=== PATIENT | male | born 1975 | race Caucasian/White ===

== ENCOUNTER 2019-05-21 08:03 | Observation (INO) ==
[2019-05-21] MEDS ORDERED: 0.9 % Sodium Chloride 1,000 ML IVC ONE (08:22)
[2019-05-21] MEDS ORDERED: *HR* FentaNYL (PF) 100 MCG/2 ML VIAL IVP ONE (08:23)
[2019-05-21] MEDS ORDERED: Ondansetron 4 MG/2 ML VIAL IVP STA (08:23)
--- NOTE | 2019-05-21 08:24 | Emergency Department Note ---
Disposition Clinical Impression: Ureteral stone with hydronephrosis Disposition: Admitted As Inpatient Time of Disposition: 16:44 Abdominal Pain HPI - General Chief Complaint: ED Abdominal Pain Stated Complaint: abd pain Time Seen by Provider: 05/21/19 08:10 Source: patient, family Mode of arrival: ambulatory Limitations: no limitations Nursing Notes Reviewed: Yes Vital Signs Reviewed: Yes - History of Present Illness HPI Narrative: 44-year-old male past medical history of renal lithiasis approximately 20 years ago woke up this morning at 6:30 with sharp stabbing 10 out of 10 pain in his right lower quadrant radiating into his right flank. Patient states this is identical pain to his prior kidney stone. Patient is unable to find a comfortable position is diaphoretic in the room. Patient states that he is felt very hot but denies any overt fevers or chills he is not a chest pain or shortness of breath, he is admitting to urinary frequency but denies dysuria or abnormal bleeding. Patient with no other concerns or complaints at this time. Given the patient's significant pain level we will begin IV fentanyl and Zofran for the management of his pain and nausea along with IV fluids. CT scan of the abdomen with abdominal labs to follow. Pt Subjective Complaint: abdominal pain, flank pain Onset (ago): hour(s) Consistency: constant Location: RLQ, R flank Pain Severity: severe Pain Scale: 9 Quality: stabbing, sharp Radiation: none Migration to: no migration Improves with: nothing Worsens with: nothing Associated symptoms: Reports: nausea, vomiting Treatments prior to arrival: none - Related Data Home Medications Medication Instructions Recorded Confirmed No Known Home Drugs 05/21/19 05/21/19 Allergies Allergy/AdvReac Type Severity Reaction Status Date / Time No Known Allergies Allergy Verified 09/04/15 11:22 Review of Systems: *See History of Present Illness for more detail Constitutional: Admits to feeling very hot and sweaty Denies: fever, chills Cardiovascular: Denies: chest pain Respiratory: Denies: dyspnea, cough, hemoptysis Gastrointestinal: Admits to abdominal pain nausea and vomiting. Denies: diarrhea, constipation, hematemesis, melena, hematochezia Genitourinary: Urinary frequency Denies: hematuria Musculoskeletal: Denies: back pain, neck pain Neurological: Denies: headache, weakness, lightheadedness/dizziness, numbness, paresthesias, difficulty with ambulation. Endocrine: Denies: fatigue All systems ED: reviewed and negative except as stated. Review of Systems: As Per HPI Abdominal Pain PMH - Past Medical History Medical history: Reports: no medical history Male Surgical History: Reports: orthopedic, other Psychiatric history: Reports: no psych history - Social History Smoking status: Never smoker Alcohol use: Reports: none Drug use: Reports: none Physical Exam Constitutional: No acute distress, [id number], engaged to conversation, speech is fluid, answers questions appropriately Neuro: GCS 15, no overt focal neurological deficits Head: Atraumatic, normocephalic Eyes: Pupils equal, round and reactive to light, no scleral icterus, no conjunctival injection Neck: Trachea midline without deviation. Anterior neck is supple without swelling. *Chest: Symmetric chest wall rise *Heart: Cardiac rhythm and rate are regular with S1 and S2 , no S3 or S4 appreciated, no murmurs, gallops, rubs, or clicks. *Lungs: Lungs are clear to auscultation bilaterally, without accessory muscle use or prolonged expiratory phase. No wheezes, rhonchi or stridor appreciated. Abdomen: Abdomen is flat, soft to palpation, normal bowel sounds. No abdominal bruit auscultated. Non-distended, non-rigid, no organomegaly, no ascites appreciated. No pulsatile mass, no tenderness or guarding to palpation in all four quadrants, no rebound Extremities: Normal capillary refill without evidence of pedal edema, joint swelling or erythema. Pulses/motor/sensory intact in all 4 extremities. Psychiatric exam: Patient displays a normal affect and mood for the environment. No overt signs of hallucination. Integumentary: warm, dry, intact, normal color. No rash, cyanosis, diaphoresis, erythema, or pallor - General Limitations: no limitations General appearance: alert, in no apparent distress Course - Reevaluation(s) Reevaluation #1: Spoke with physician patient assistant for Dr. Emir webb regarding this patient's care. PETEY states that based on patient preference they may be managed outpatient or have admission to the hospital with urology follow-up either tonight tomorrow. The patient prefers admission at this time and this was communicated to the urology department. PETEY states that she will come and see the patient in the ED. Consult has been placed. Consultation is greatly appre ciated! Time: 10:17 Vital Signs Temperature 98.2 F 05/21/19 08:09 Pulse Rate 62 05/21/19 08:09 Respiratory Rate 18 05/21/19 08:09 Blood Pressure 132/80 05/21/19 08:09 O2 Sat by Pulse Oximetry 99 05/21/19 08:09 Temperature 98.2 F 05/21/19 14:44 Pulse Rate 65 05/21/19 14:44 Respiratory Rate 16 05/21/19 14:44 Blood Pressure 116/66 05/21/19 14:44 O2 Sat by Pulse Oximetry 95 05/21/19 14:44 Oxygen Delivery Oxygen Delivery Room Air Abdominal Pain - MDM Narrative Medical decision making narrative: Patient noted to hospital medicine service with urology consult for management of renal lithiasis. Patient's pain is currently well-controlled and he is hemodynamically stable time of admission. - Lab Data Lab results reviewed: Yes I reviewed the patient's lab results. Result diagrams: 05/21/19 08:32 05/21/19 08:32 Lab Results 05/21/19 05/21/19 Range/Units 08:32 08:32 WBC 7.7 (4.3-11.1) K/mcL RBC 5.21 (4.19-5.50) M/mcL Hgb 15.1 (12.9-16.9) g/dL Hct 44.0 (37.5-50.1) % MCV 84.5 (83.0-100.0) fL MCH 29.0 (28.0-33.3) pg MCHC 34.3 (31.6-35.5) g/dL RDW 12.5 (11.5-14.5) % Plt Count 289 (140-400) K/mcL MPV 10.1 (9.4-12.4) fL Immature Gran % 0.7 (0-4) % Seg Neutrophils % 58.4 % Lymphocytes % 29.0 % Monocytes % 10.2 % Eosinophils % 1.2 % Basophils % 0.5 % Neutrophils # 4.5 (1.6-8.9) K/mcL Lymphocytes # 2.2 (0.6-4.6) K/mcL Monocytes # 0.8 (0.0-1.3) K/mcL Eosinophils # 0.1 (0.0-0.6) K/mcL Basophils # 0.0 (0.0-0.2) K/mcL Sodium 144 (136-145) mEq/L Potassium 3.6 (3.5-5.1) mEq/L Chloride 103 (98-107) mEq/L Carbon Dioxide 26 (23-29) mEq/L BUN 19 (6-20) mg/dL Creatinine 1.35 H (0.70-1.30) mg/dL Est GFR ( Amer) > 60 (> 60) Est GFR (Non-Af Amer) 58 L (> 60) BUN/Creatinine Ratio 14 (6-26) Glucose 131 H (70-105) mg/dL Calculated Osmolality 302 H (280-300) Calcium 9.7 (8.6-10.3) mg/dL Total Bilirubin 0.9 (0.3-1.0) mg/dL Direct Bilirubin 0.1 (0.0-0.2) mg/dL Indirect Bilirubin 0.8 (0.0-1.2) mg/dL AST 22 (13-39) Units/L ALT 24 (7-52) Units/L Alkaline Phosphatase 72 (34-104) Units/L Serum Total Protein 7.3 (6.4-8.9) g/dL Albumin 4.5 (3.5-5.7) g/dL Globulin 2.8 (2.4-3.5) g/dL Albumin/Globulin Ratio 1.6 (1.1-2.2) Lipase 14 (11-82) Units/L - Radiology Data Radiology results reviewed: Yes I reviewed the patient's radiology results. Abdomen/Pelvis CT 05/21/19 08:21 IMPRESSION: 1. Mildly obstructing 6 mm stone in the proximal right ureter with mild perinephric and periureteral stranding. 2. Bilateral punctate nephrolithiasis. 3. L5 pars defects with grade 1 anterolisthesis and associated moderately severe disc disease. 4. Findings suggestive of mild hepatic steatosis. D/ / Jan Fofana / Jan Fofana Interpreting Provider: Jan Fofana
[2019-05-21 08:49] LABS: White Blood Count 7.7 K/mcL (4.3-11.1)
[2019-05-21 08:50] LABS: Basophils % 0.5 %; Eosinophils # 0.1 K/mcL (0.0-0.6); Eosinophils % 1.2 %; Hemoglobin 15.1 g/dL (12.9-16.9); Immature Granulocytes % 0.7 % (0-4); Lymphocytes # 2.2 K/mcL (0.6-4.6); Mean Corpuscular HGB Conc 34.3 g/dL (31.6-35.5); Mean Corpuscular Volume 84.5 fL (83.0-100.0); Mean Platelet Volume 10.1 fL (9.4-12.4); Monocytes # 0.8 K/mcL (0.0-1.3); Monocytes % 10.2 %; Neutrophils # 4.5 K/mcL (1.6-8.9); Platelet Count 289 K/mcL (140-400); Red Blood Count 5.21 M/mcL (4.19-5.50); Red Cell Distribution Width 12.5 % (11.5-14.5); Segmented Neutrophils % 58.4 %
[2019-05-21 09:07] LABS: Alanine Aminotransferase 24 Units/L (7-52); Albumin 4.5 g/dL (3.5-5.7); Albumin/Globulin Ratio 1.6 (1.1-2.2); Alkaline Phosphatase 72 Units/L (34-104); Aspartate Amino Transferase 22 Units/L (13-39); BUN/Creatinine Ratio 14 (6-26); Bilirubin,Direct 0.1 mg/dL (0.0-0.2); Bilirubin,Indirect 0.8 mg/dL (0.0-1.2); Bilirubin,Total 0.9 mg/dL (0.3-1.0); Blood Urea Nitrogen 19 mg/dL (6-20); Calcium 9.7 mg/dL (8.6-10.3); Carbon Dioxide 26 mEq/L (23-29); Chloride 103 mEq/L (98-107); Globulin 2.8 g/dL (2.4-3.5); Glucose 131 mg/dL (70-105); Lipase 14 Units/L (11-82); Osmolality,Calculated 302 (280-300); Potassium 3.6 mEq/L (3.5-5.1); Sodium 144 mEq/L (136-145); Total Protein 7.3 g/dL (6.4-8.9); eGFR For African Americans > 60 (> 60); eGFR For Non-African Americans 58 (> 60)
--- NOTE | 2019-05-21 10:29 | Emergency Department Note ---
Disposition Clinical Impression: Ureteral stone with hydronephrosis Disposition: Still a Patient Referrals: Chas Ayala DO [Primary Care Provider] - Forms: ED Satisfaction Letter, Work/School Release Time of Disposition: 10:28 General Adult HPI - General Chief complaint: ED Abdominal Pain Stated complaint: abd pain Time Seen by Provider: 05/21/19 08:10 Source: patient, family Mode of arrival: ambulatory Limitations: no limitations Nursing Notes Reviewed: Yes Vital Signs Reviewed: Yes - History of Present Illness HPI Narrative: Attestation note: Patient was seen with the emergency medicine resident/nurse practitioner/ physician veterinary assistant/transitional resident/medical student: Dr. Ezequiel Velarde. This includes well any procedures performed for this significant portion thereof which are to include EKG and bedside ultrasound I have personally performed a face to face evaluation on this patient. I have reviewed and agree with history and physical examination patient management and disposition. Briefly the salient points of the case are as follows: 44-year-old male woke up with flank pain and urinary frequency but no hematuria prior history of stones pending of left flank pain mild to moderate distress. Analgesics and fluid given patient abdominal pelvic CT shows a 6 mm obstructing stone urology is been consult at. Patient getting a second dose pain medication. Disposition pending Pain Scale: 5 - Related Data Previous Rx's Medication Instructions Recorded Pantoprazole Sodium [Protonix] 40 mg PO DAILY #30 tablet. 09/04/15 Allergies Allergy/AdvReac Type Severity Reaction Status Date / Time No Known Allergies Allergy Verified 09/04/15 11:22 Past Medical History - Past Medical History Medical history: Reports: no medical history Surgical history: Reports: other Psychiatric history: Reports: no psych history - Social History Smoking Status: Never smoker Smokeless Tobacco Status: Yes Alcohol use: Reports: none Drug use: Reports: none Physical Exam - General Limitations: no limitations General appearance: alert, in no apparent distress Course Vital Signs Temperature 98.2 F 05/21/19 08:09 Pulse Rate 62 05/21/19 08:09 Respiratory Rate 18 05/21/19 08:09 Blood Pressure 132/80 05/21/19 08:09 O2 Sat by Pulse Oximetry 99 05/21/19 08:09 Temperature 98.2 F 05/21/19 08:09 Pulse Rate 71 05/21/19 10:26 Respiratory Rate 18 05/21/19 10:26 Blood Pressure 129/88 05/21/19 10:26 O2 Sat by Pulse Oximetry 95 05/21/19 10:26 Oxygen Delivery Oxygen Delivery Room Air Medical Decision Making - Lab Data Result diagrams: 05/21/19 08:32 05/21/19 08:32 Lab Results 05/21/19 05/21/19 Range/Units 08:32 08:32 WBC 7.7 (4.3-11.1) K/mcL RBC 5.21 (4.19-5.50) M/mcL Hgb 15.1 (12.9-16.9) g/dL Hct 44.0 (37.5-50.1) % MCV 84.5 (83.0-100.0) fL MCH 29.0 (28.0-33.3) pg MCHC 34.3 (31.6-35.5) g/dL RDW 12.5 (11.5-14.5) % Plt Count 289 (140-400) K/mcL MPV 10.1 (9.4-12.4) fL Immature Gran % 0.7 (0-4) % Seg Neutrophils % 58.4 % Lymphocytes % 29.0 % Monocytes % 10.2 % Eosinophils % 1.2 % Basophils % 0.5 % Neutrophils # 4.5 (1.6-8.9) K/mcL Lymphocytes # 2.2 (0.6-4.6) K/mcL Monocytes # 0.8 (0.0-1.3) K/mcL Eosinophils # 0.1 (0.0-0.6) K/mcL Basophils # 0.0 (0.0-0.2) K/mcL Sodium 144 (136-145) mEq/L Potassium 3.6 (3.5-5.1) mEq/L Chloride 103 (98-107) mEq/L Carbon Dioxide 26 (23-29) mEq/L BUN 19 (6-20) mg/dL Creatinine 1.35 H (0.70-1.30) mg/dL Est GFR ( Amer) > 60 (> 60) Est GFR (Non-Af Amer) 58 L (> 60) BUN/Creatinine Ratio 14 (6-26) Glucose 131 H (70-105) mg/dL Calculated Osmolality 302 H (280-300) Calcium 9.7 (8.6-10.3) mg/dL Total Bilirubin 0.9 (0.3-1.0) mg/dL Direct Bilirubin 0.1 (0.0-0.2) mg/dL Indirect Bilirubin 0.8 (0.0-1.2) mg/dL AST 22 (13-39) Units/L ALT 24 (7-52) Units/L Alkaline Phosphatase 72 (34-104) Units/L Serum Total Protein 7.3 (6.4-8.9) g/dL Albumin 4.5 (3.5-5.7) g/dL Globulin 2.8 (2.4-3.5) g/dL Albumin/Globulin Ratio 1.6 (1.1-2.2) Lipase 14 (11-82) Units/L
--- NOTE | 2019-05-21 11:00 | Urology - Consult Note ---
Date of Encounter: 05/21/19 Time of Encounter: 10:30 - Assessment and Plan (1) Ureteral stone with hydronephrosis Current Visit: Yes Status: Acute Assessment and plan: Patient is a 44-year-old male who presents with a 6 mm right proximal ureteral stone and hydronephrosis. Vital signs are stable and afebrile. White blood cell count is reassuring. Serum creatinine slightly elevated at 1.35. Patient is being admitted to the hospitalist service. We discussed surgical risks and benefits, and patient verbalized understanding. Patient signed consent, and he is prepared undergo a right ureteroscopic stone extraction with holmium laser lithotripsy, basket retrieval and right ureteral stent placement later this afternoon with Dr. Field. Patient will remain nothing by mouth. Urology CN:HPI Consult date: 05/21/19 Reason for consult Urology: Hydronephrosis (right ureteral stone) Requesting physician: Ezequiel Maria History of present illness: Patient is a 44-year-old male who presents with a 6 mm right proximal ureteral stone and hydronephrosis. Patient reports a one-week history of intermittent right flank pain, the patient states the pain acutely worsened overnight. Patient presented to the emergency department where he underwent a CT of the abdomen and pelvis revealing right nephrolithiasis and a right proximal ureteral stone measuring up to 6 mm with hydronephrosis. Patient admits to diaphoresis, nausea and vomiting, but he denies any fever, chills, gross hematuria or dysuria. Patient has a long-standing history of nephrolithiasis with his last stone occurring approximately 15 years ago. Patient has previously undergone ureteral stent placement and ESWL. Patient has a significant family history of renal stones through his father. Past Med Surg Social Fam HX - Past Medical History Medical history: no medical history Psychiatric history: no psych history - Past Surgical History Surgical History: other Additional surgical history: ankle, femur, hip - Social History Smoking Status: Never smoker Smokeless Tobacco Status: Yes Alcohol use: none Drug use: none - Family History Father Grandfather Hx Family Cardiac Disorders: Yes Medications and Allergies No Known Home Drugs 05/21/19 [History] Allergy/AdvReac Type Severity Reaction Status Date / Time No Known Allergies Allergy Verified 09/04/15 11:22 Review of Systems - Constitutional no chills, no fatigue, no fever(s) - EENT Nose, mouth and throat: no dizziness, no headache(s) - Cardiovascular no chest pain, no diaphoresis, no dyspnea - Respiratory no cough, no dyspnea - Gastrointestinal abdominal pain, nausea, vomiting - Genitourinary flank pain, no change in urinary stream, no difficulty urinating, no dysuria, no hematuria, no urinary frequency, no urinary hesitancy, no urinary incontinence, no urinary urgency - Musculoskeletal back pain, no muscle weakness - Integumentary no erythema - Neurological no confusion, no syncope - Psychiatric no anxiety, no confusion - Hematologic/Lymphatic no easy bleeding, no easy bruising - Allergic/Immunologic no throat swelling, no wheezing Exam Initial Vital Signs Temp Pulse Resp BP Pulse Ox 98.2 F 62 18 132/80 99 05/21/19 08:09 05/21/19 08:09 05/21/19 08:09 05/21/19 08:09 05/21/19 08:09 - General physical appearance Present: well developed, no distress, no pain - Eyes Present: PERRL, normal ocular movement - ENT Present: normal nares, no hearing loss, no congestion - Neck Present: no masses, trachea midline, no lymphadenopathy - Respiratory Present: normal respiratory effort - Cardiovascular Cardiovascular exam IM: RRR - Abdomen Abdomen: Present: soft, non tender. Absent: distended - Genitourinary other (Urine is transparent, clear yellow; no CVAT) - Integumentary Present: no rash, no abnormal pigmentation - Neurologic Present: normal coordination - Musculoskeletal Present: other (Normal posture) Urology Results - Labs 05/21/19 08:32 05/21/19 08:32 Abnormal lab results Creatinine 1.35 mg/dL (0.70-1.30) H 05/21/19 08:32 Est GFR (Non-Af Amer) 58 (> 60) L 05/21/19 08:32 Glucose 131 mg/dL (70-105) H 05/21/19 08:32 Calculated Osmolality 302 (280-300) H 05/21/19 08:32 Diabetes panel 05/21/19 Range/Units 08:32 Sodium 144 (136-145) mEq/L Potassium 3.6 (3.5-5.1) mEq/L Chloride 103 (98-107) mEq/L Carbon Dioxide 26 (23-29) mEq/L BUN 19 (6-20) mg/dL Creatinine 1.35 H (0.70-1.30) mg/dL Glucose 131 H (70-105) mg/dL Calcium 9.7 (8.6-10.3) mg/dL AST 22 (13-39) Units/L ALT 24 (7-52) Units/L Alkaline Phosphatase 72 (34-104) Units/L Albumin 4.5 (3.5-5.7) g/dL Calcium panel 05/21/19 Range/Units 08:32 Calcium 9.7 (8.6-10.3) mg/dL Albumin 4.5 (3.5-5.7) g/dL Pituitary panel 05/21/19 Range/Units 08:32 Sodium 144 (136-145) mEq/L Potassium 3.6 (3.5-5.1) mEq/L Chloride 103 (98-107) mEq/L Carbon Dioxide 26 (23-29) mEq/L BUN 19 (6-20) mg/dL Creatinine 1.35 H (0.70-1.30) mg/dL Glucose 131 H (70-105) mg/dL Calcium 9.7 (8.6-10.3) mg/dL Adrenal panel 05/21/19 Range/Units 08:32 Sodium 144 (136-145) mEq/L Potassium 3.6 (3.5-5.1) mEq/L Chloride 103 (98-107) mEq/L Carbon Dioxide 26 (23-29) mEq/L BUN 19 (6-20) mg/dL Creatinine 1.35 H (0.70-1.30) mg/dL Glucose 131 H (70-105) mg/dL Calcium 9.7 (8.6-10.3) mg/dL Total Bilirubin 0.9 (0.3-1.0) mg/dL AST 22 (13-39) Units/L ALT 24 (7-52) Units/L Alkaline Phosphatase 72 (34-104) Units/L Albumin 4.5 (3.5-5.7) g/dL All other labs normal. - Imaging CT scan - abdomen: report reviewed, image reviewed CT scan - pelvis: report reviewed, image reviewed Consult Discharge Plan - Plan Referrals: Chas Ayala DO [Primary Care Provider] -
[2019-05-21] MEDS ORDERED: Naloxone 0.4 MG/ML INJ IVP PRN ×3 (11:21→19:36)
--- NOTE | 2019-05-21 11:21 | Internal Med History&Physical ---
Date of Encounter: 05/21/19 Time of Encounter: 11:20 Internal Medicine - H&P: HPI History of present illness: Mr. Leblanc is a 44 year old male with history of nephrolithiasis with ureteral stents 15 years ago presented for a one week history of right flank pain that has gradually gotten worse. Patient went to ED and had CT of abdomen/pelvis showing right nephrolithiasis and UPJ stone obstruction with hydronephrosis. He was seen to have borderline elevated creatinine as well. He was treated with IV fluids and pain medications. Currently in no pain. Past Med Surg Social Fam HX - Past Medical History Medical history: no medical history Psychiatric history: no psych history - Past Surgical History Surgical History: other Additional surgical history: ankle, femur, hip - Social History Smoking Status: Never smoker Smokeless Tobacco Status: Yes Alcohol use: none Drug use: none - Family History Father Grandfather Hx Family Cardiac Disorders: Yes Internal Medicine - H&P: Meds No Known Home Drugs 05/21/19 [History] Allergy/AdvReac Type Severity Reaction Status Date / Time No Known Allergies Allergy Verified 09/04/15 11:22 All Systems PM: A 10-system review of systems was performed and is negative for pertinent findings except as documented above in the HPI. - Constitutional Vitals: Temp Pulse Resp BP Pulse Ox 98.2 F 71 18 129/88 95 05/21/19 08:09 05/21/19 10:26 05/21/19 10:26 05/21/19 10:26 05/21/19 10:26 General appearance: Present: A&O X 3 Exam: Pleasant - Head Head exam: Present: atraumatic, normocephalic - Eye Eye exam: Present: PERRL, conjuntiva pink, sclera anicteric Pupils: Present: PERRL - Neck Neck exam general surgery: Present: supple, trachea midline. Absent: lymphad enopathy - Respiratory Respiratory exam: Present: CTAB. Absent: accessory muscle use, rales, rhonchi, wheezes - Cardiovascular Cardiovascular exam: Present: RRR, +S1, +S2. Absent: diastolic murmur, gallop, rubs, systolic murmur - GI/Abdominal GI/Abdominal exam: Present: normal bowel sounds, soft, no peritoneal signs. Absent: distended, tenderness - Extremities Exam Extremities exam: Present: warm, radial pulses palpable and symmetrical. Absent: calf tenderness, cyanotic, pedal edema - Neurological Exam Neurological exam: Present: CN II-XII intact, oriented X3, no focal deficits. Absent: pronater drift, facial droop, speech deficit - Skin Skin exam: Present: dry, intact Internal Med - H&P Results - Labs CBC & Chem 7: 05/21/19 08:32 05/21/19 08:32 Labs: Short CBC 05/21/19 Range/Units 08:32 WBC 7.7 (4.3-11.1) K/mcL Hgb 15.1 (12.9-16.9) g/dL Hct 44.0 (37.5-50.1) % Plt Count 289 (140-400) K/mcL Neutrophils # 4.5 (1.6-8.9) K/mcL BMP 05/21/19 08:32 Sodium 144 Potassium 3.6 Chloride 103 Carbon Dioxide 26 BUN 19 Creatinine 1.35 H Glucose 131 H Calcium 9.7 Liver Function 05/21/19 Range/Units 08:32 Total Bilirubin 0.9 (0.3-1.0) mg/dL Direct Bilirubin 0.1 (0.0-0.2) mg/dL AST 22 (13-39) Units/L ALT 24 (7-52) Units/L Alkaline Phosphatase 72 (34-104) Units/L Albumin 4.5 (3.5-5.7) g/dL - Impressions ITS Impressions Abdomen/Pelvis CT 05/21/19 08:21 IMPRESSION: 1. Mildly obstructing 6 mm stone in the proximal right ureter with mild perinephric and periureteral stranding. 2. Bilateral punctate nephrolithiasis. 3. L5 pars defects with grade 1 anterolisthesis and associated moderately severe disc disease. 4. Findings suggestive of mild hepatic steatosis. D/ / Jan Fofana / Jan Fofana Interpreting Provider: Jan Fofana - Assessment and Plan (1) Ureteral stone with hydronephrosis Current Visit: Yes Status: Acute Assessment and plan: Urology consulted, recommendations appreciated. Plan is for lithotripsy and stone extraction later today. Continue symptom control of pain and nausea. (2) SVA (acute kidney injury) Current Visit: Yes Status: Acute Assessment and plan: Likely post-renal from stone obstruction, plan as above. Recheck BMP in AM. (3) DVT prophylaxis Current Visit: Yes Status: Acute Assessment and plan: Heparin SQ - Time Spent With Patient Total time spent is greater than 50% in coordination of care (as documented) at patient's floor/unit and/or counseling patient:
[2019-05-21] MEDS ORDERED: 0.9 % Sodium Chloride 1,000 ML IVC SCH ×2 (11:30→19:36)
[2019-05-21] MEDS ORDERED: *HR* FentaNYL (PF) 100 MCG/2 ML VIAL IVP PRN ×2 (11:43→19:36)
[2019-05-21] MEDS ORDERED: cefTRIAXone 1,000 MG in Water for inj. (sterile) 10 ML IVP ONE (12:53)
--- NOTE | 2019-05-21 16:32 | Anesthesia Evaluation PreOp ---
Date of Encounter: 05/21/19 Time of Encounter: 16:29 - Past History Planned Operation: Right Ureteroscopic Stone Extraction Cardiac History: Denies any Significant Hx Pulmonary History: Denies Any Significant HX, Snore [employer] [place] History: Denies Any Significant HX Other Medical History: Renal (kidney stones), GERD Anesthesia History: No Prior Anesthetic Complications, Past Anesthesia Alcohol Use: occasionally Drug use: none Medications and Allergies No Known Home Drugs 05/21/19 [History] Allergy/AdvReac Type Severity Reaction Status Date / Time No Known Allergies Allergy Verified 09/04/15 11:22 - Meds/Allergy Pre-op Review Medications Reviewed: Yes Allergies Reviewed: Yes Beta Blockers on Current Med List: No Anesthesia Results - Labs 05/21/19 08:32 05/21/19 08:32 - Imaging EKG: report reviewed (09/04/2015 SINUS RHYTHM INTERPRETATION BASED ON A DEFAULT AGE OF 40 YEARS) Anesthesia Exam Vital Signs/O2 Sat, Most Current Temp Pulse Resp BP Pulse Ox 98.2 F 65 16 116/66 95 05/21/19 14:44 05/21/19 14:44 05/21/19 14:44 05/21/19 14:44 05/21/19 14:44 Height: 5'7''/.7m Weight: 190 lbs/86.2 kg NPO (# of Hours): 8 Pain Scale: 0 Pain Scale Used: Numeric (1 - 10) - HEENT Pupil (Motor): EOMI Mallampati: III Teeth: Normal Oral Opening: Greater than 3 - BANKER [place] LOC: Oriented B[employer] [place] Motor: Normal RUE, Normal LUE, Normal RLE, Normal LLE, Normal Face B[employer]ER [place] Sensory: Normal: LUE, RLE, LLE, Face, Deficit: RUE - Cardiac Rhythm: Regular Murmur: None - Pulmonary Breath Sounds: bilateral Clear Respiratory Effort: Symmetrical Anesthesia Assess/Plan ASA Score: 2 Level of consciousness: Cooperative, Oriented, Tranquil Anesthetic Plan: General Monitoring Plan: Standard Monitors Recovery Plan: PACU
[2019-05-21] MEDS ORDERED: *HR* HYDROmorphone (PF) 1 MG/ML SYRINGE IVP PRN (16:39)
[2019-05-21] MEDS ORDERED: *HR* FentaNYL (PF) 100 MCG/2 ML VIAL ONE (17:17)
[2019-05-21] MEDS ORDERED: *HR* Midazolam HCl 2 MG/2 ML VIAL ONE (17:17)
[2019-05-21] MEDS ORDERED: *HR* Propofol 200 MG/20 ML VIAL IVP ONE (17:18)
[2019-05-21] MEDS ORDERED: Lidocaine -MPF 2% 2 ML VIAL ONE (17:18)
[2019-05-21] MEDS ORDERED: Ondansetron 4 MG/2 ML VIAL ONE (17:39)
[2019-05-21] MEDS ORDERED: Dexamethasone 4 MG/ML VIAL ONE (17:39)
--- NOTE | 2019-05-21 18:37 | Operative Note ---
Date of procedure: 05/21/19 Pre-op diagnosis: Right ureteral stone Post-op diagnosis: same Procedure: Right ureteroscopy, laser lithotripsy, basket stone extraction, and stent placement Implants: 6-Maldivian by 26 cm double-J stent Complications: None Anesthesia: MACRINA Surgeon: Shahram Field Was there an judicial assistant present: No Estimated blood loss (cc): 1 Specimen: Right ureteral stone Condition: stable Disposition: PACU Procedure in Detail: Indications: Mr. Leblanc is a 44-year-old male who has a history of nephrolithiasis. A CT scan showed a stone within his right proximal ureter as well as his right kidney. He elected to undergo a 8 ureteroscopy, laser lithotripsy, and basket stone extraction with stent placement. He was aware of the risks of the procedure including but not limited to bleeding, infection, injury to other structures, need for further procedures, stent irritation, need for nephrostomy tube, need for open repair, risks otherwise unforeseen, and the risk of anesthesia. He is willing to proceed. Procedure in Detail: After informed consent was obtained the patient was brought back to the operating room and placed in supine position. A time out was performed. General anesthesia was administered and an laryngeal mask airway was placed. He was then placed in the lithotomy position. He was prepped and draped in the usual sterile fashion. Cystoscopy was performed. The anterior urethra was normal. There was no evidence of bladder tumors. The ureteral orifices were in the normal orthotopic position. There was no duplication of the ureteral orifices. The sensor wire was placed in the right ureteral orifice. The wire was then brought up into the kidney under fluoroscopic guidance. The stone was seen in the proximal ureter. The wire was able to move by. The ureter was dilated with the 8/10-Maldivian ureteral dilator. The a zip wire was then placed. I then passed the 11/13 Maldivian ureteral access sheath. The flexible ureteroscope was then advanced into the proximal ureter. The stone was identified and I inserted the 200 micron laser fiber. I then fragmented the stone into small pieces. These pieces were then basket extracted. The scope was advanced into the kidney. There were multiple stones seen throughout the kidney. The stones were primarily basket extracted. There was a larger stone within the upper pole calyx. This was fragmented into 4 pieces. Those fragments were then removed. Once all the significnt stone burden was extracted, the ureteroscope was then removed and the pullout ureteroscopy showed no injury to the ureter. A 6 Maldivian by 26cm JJ stent was then placed. The dangle strings were left intact and secured to the penis with a Tegaderm. The bladder was drained. The patient was then awakened from general anesthesia and brought to recovery room in good condition. All sponge, needle, and instrument counts were correct.
--- NOTE | 2019-05-21 18:43 | Event Note ---
Date of Encounter: 05/21/19 Time of Encounter: 18:43 Patient can be discharged home when clear per hospitalist. 1. The patient can remove the stent in 5 days by pulling up on the string. 2. He should expect to feel flank pain with voiding. 3. The patient should call for any fevers, chills, nausea, emesis, or uncontrolled pain. 4. Please provide a work excuse if necessary for up to 1 week off. 5. He can follow up in 3-4 weeks with a KUB.
--- NOTE | 2019-05-21 19:07 | Anesthesia Evaluation Post Op ---
Date of Encounter: 05/21/19 Time of Encounter: 19:00 - Vital Signs Vital Signs: Vital Signs/O2 Sat/Glucose, Most Current Temp Pulse Resp BP Pulse Ox 05/21/19 19:00 82 12 131/83 97 05/21/19 18:50 86 16 115/76 95 05/21/19 18:40 98.4 F 91 18 121/80 97 - Lungs Lungs: Clear Ascult./Percussion - Airway Airway: Non-obstructed - Cardiovascular Regular Rate - Mental Status Mental Status: Alert & Oriented, Answers Appropriately - Pain Pain Scale: 0 - Nausea Vomiting Nausea Vomiting: Not Present - Hydration Hydration: Ice chips - Discharge PostOp Status: Transfer Patient to floor
[2019-05-22 03:02] LABS: BUN/Creatinine Ratio 12 (6-26); Blood Urea Nitrogen 14 mg/dL (6-20); Calcium 8.8 mg/dL (8.6-10.3); Carbon Dioxide 24 mEq/L (23-29); Chloride 106 mEq/L (98-107); Glucose 151 mg/dL (70-105); Osmolality,Calculated 287 (280-300); Potassium 4.4 mEq/L (3.5-5.1); Sodium 137 mEq/L (136-145); eGFR For African Americans > 60 (> 60); eGFR For Non-African Americans > 60 (> 60)
[2019-05-22 07:21] VITALS: BP 110/64
--- NOTE | 2019-05-22 07:43 | Urology Progress Note ---
Date of Encounter: 05/22/19 Time of Encounter: 07:41 - Assessment and Plan (1) Ureteral stone with hydronephrosis Current Visit: Yes Status: Acute Assessment and plan: Postoperative day #1 status post right ureteroscopic stone extraction with stent placement. 1. Okay to discharge home per urology. Appreciate hospitalist support. 2. He can remove his stent in 5 days. 3. He will follow me in 3-4 weeks with a KUB prior to the visit. Progress Note Narrative: Postoperative day #1 status post right ureteroscopy, laser lithotripsy, and stent placement. He is doing well today. No issues overnight. He is having some discomfort with voiding related to the indwelling stent. Objective Initial Vital Signs Temp Pulse Resp BP Pulse Ox 98.2 F 62 18 132/80 99 05/21/19 08:09 05/21/19 08:09 05/21/19 08:09 05/21/19 08:09 05/21/19 08:09 - General physical appearance Present: well developed, well nourished, no distress - Respiratory Present: normal respiratory effort - Abdomen Present: soft - Genitourinary Urine Appearance: Present: Hematuria (Yessi-colored urine) - Labs 05/21/19 08:32 05/22/19 02:23 Diabetes panel 05/21/19 05/22/19 Range/Units 08:32 02:23 Sodium 144 137 (136-145) mEq/L Potassium 3.6 4.4 (3.5-5.1) mEq/L Chloride 103 106 (98-107) mEq/L Carbon Dioxide 26 24 (23-29) mEq/L BUN 19 14 (6-20) mg/dL Creatinine 1.35 H 1.13 (0.70-1.30) mg/dL Glucose 131 H 151 H (70-105) mg/dL Calcium 9.7 8.8 (8.6-10.3) mg/dL AST 22 (13-39) Units/L ALT 24 (7-52) Units/L Alkaline Phosphatase 72 (34-104) Units/L Albumin 4.5 (3.5-5.7) g/dL Calcium panel 05/21/19 05/22/19 Range/Units 08:32 02:23 Calcium 9.7 8.8 (8.6-10.3) mg/dL Albumin 4.5 (3.5-5.7) g/dL Pituitary panel 05/21/19 05/22/19 Range/Units 08:32 02:23 Sodium 144 137 (136-145) mEq/L Potassium 3.6 4.4 (3.5-5.1) mEq/L Chloride 103 106 (98-107) mEq/L Carbon Dioxide 26 24 (23-29) mEq/L BUN 19 14 (6-20) mg/dL Creatinine 1.35 H 1.13 (0.70-1.30) mg/dL Glucose 131 H 151 H (70-105) mg/dL Calcium 9.7 8.8 (8.6-10.3) mg/dL Adrenal panel 05/21/19 05/22/19 Range/Units 08:32 02:23 Sodium 144 137 (136-145) mEq/L Potassium 3.6 4.4 (3.5-5.1) mEq/L Chloride 103 106 (98-107) mEq/L Carbon Dioxide 26 24 (23-29) mEq/L BUN 19 14 (6-20) mg/dL Creatinine 1.35 H 1.13 (0.70-1.30) mg/dL Glucose 131 H 151 H (70-105) mg/dL Calcium 9.7 8.8 (8.6-10.3) mg/dL Total Bilirubin 0.9 (0.3-1.0) mg/dL AST 22 (13-39) Units/L ALT 24 (7-52) Units/L Alkaline Phosphatase 72 (34-104) Units/L Albumin 4.5 (3.5-5.7) g/dL Consult Discharge Plan - Plan Referrals: Chas Ayala DO [Primary Care Provider] - Shahram Field MD [Partnered Physician] - Prescriptions: HYDROcodone/Acet 5/325 mg [[place] 5-325 mg] 1 tab PO Q4H PRN 2 Days #12 tab PRN Reason: Moderate Pain
--- NOTE | 2019-05-22 07:51 | Discharge Summary ---
Orders not resulted at time of discharge: Pending orders 05/21/19 08:32 Urinalysis Reflex Cult & Micro [URIN] Stat 05/21/19 18:29 Surgical Pathology [PTH] Routine 05/22/19 07:37 Urinalysis Reflex Cult & Micro [URIN] Stat Date of Encounter: 05/22/19 Time of Encounter: 07:48 - Discharge Diagnosis (1) Ureteral stone with hydronephrosis Priority: Primary Status: Acute (2) SAV (acute kidney injury) Priority: Primary Status: Acute Hospital course: Mr. Leblanc is a 44 year old male with history of nephrolithiasis with ureteral stents 15 years ago presented for a one week history of right flank pain that has gradually gotten worse. Patient went to ED and had CT of abdomen/pelvis showing right nephrolithiasis and UPJ stone obstruction with hydronephrosis. He was seen to have borderline elevated creatinine as well. He was treated with IV fluids and pain medications. Seen by urologist and had a lithrotripsy and stone extraction done. A stent was placed. Will f/u with urology outpatient. Scheduled already. Discharged on 05/22/19. - Time Spent with Patient Total time spent providing and/or coordinating discharge services: - Discharge Medications Prescriptions: New HYDROcodone/Acet 5/325 mg [[place] 5-325 mg] 1 tab PO Q4H PRN 2 Days #12 tab PRN Reason: Moderate Pain Continued Ibuprofen [Motrin Ib] 600 - 800 mg PO Q8H PRN PRN Reason: Pain Home Medications: Ibuprofen [Motrin Ib] 600 - 800 mg PO Q8H PRN 05/21/19 [History] HYDROcodone/Acet 5/325 mg [[place] 5-325 mg] 1 tab PO Q4H PRN 2 Days #12 tab 05/22/19 [Rx] Allergies/Adverse Reactions: Allergy/AdvReac Type Severity Reaction Status Date / Time No Known Allergies Allergy Verified 05/21/19 22:23 Date of admission: 05/21/19 11:06 Primary care physician: Yovani Ayala DO Consults: 05/21/19 10:16 Consult to Urology [CONS] Stat Consulting Provider: Urology Petra Reason for Consult: 6mm Right UVJ stone with creatinine elevation. Time Notified: 10:16 Call Completed: Yes - Constitutional Vitals: Temp Pulse Resp BP Pulse Ox 97.9 F 76 14 110/64 95 05/22/19 07:17 05/22/19 07:17 05/22/19 07:17 05/22/19 07:17 05/22/19 07:17 General appearance: Present: A&O X 3 Exam: GEN: NAD CVS: RRR. S1, S2, No m/r/g RESP: CTAB ABD: Soft, ND, +BS. Right flank pain and tenderness EXT: No edema. 2+ DP. No rashes NEURO: Nonfocal - Patient Status Disposition: Home, Self-Care Condition: Fair Overall status at discharge: patient is progressing back to baseline - Discharge Instructions Follow Up With: Chas Ayala DO [Primary Care Provider] - Shahram Field MD [Partnered Physician] - Forms: Work/School Release Additional Instructions: The patient can remove the stent in 5 days by pulling up on the string. Per Dr. Field - Diet and Activity Activity: increase activity as tolerated Diet: regular diet
[2019-05-22 08:14] LABS: Bilirubin,Urine Negative (Negative); Blood,Urine Large (Negative); Clarity,Urine Cloudy (Clear); Glucose,Urine (UA) Normal (Normal); Ketones,Urine Trace mg/dL (Negative); Leukocyte Esterase,Urine Moderate (Negative); Nitrite,Urine Negative (Negative); Protein,Urine 100 mg/dL (Neg-Trace); Specific Gravity,Urine 1.017 (1.010-1.025); Urobilinogen,Urine Normal (Normal)
[2019-05-22 08:18] LABS: Bacteria,Urine None Seen per hpf (None-Few); Hyaline Casts,Urine None Seen per lpf (None-Few); RBC,Urine TNTC per hpf (0-3); Squamous Epithelial Cell,Urine Many per lpf (None-Few); WBC,Urine 15-30 per hpf (0-3)
[2019-05-22 08:19] LABS: Color,Urine Orange (Yellow)
== END 2019-05-22 12:06 | disposition home or self-care (01) ==
LOC: EMEROOARM 08:03 → 3ANU 08:03 → SUATTDRO 11:06 → 3ANU 11:48
PROVIDERS: ADMIT Student in an Organized Health Care Education/Training Program; ATTEND Internal Medicine